=== PATIENT | female | born 1990 | race Caucasian/White ===

== ENCOUNTER 2016-09-01 17:36 | Day surgery (SDC) | payer BC ==
[~2016-09-01] VITALS: Ht 165.1 cm; Wt 67.3 kg
[2016-09-01 18:40] LABS: BASO % 0.1 % (0.0-2.0); GRAN % 86.8 % (42.2-75.2); HEMATOCRIT 37.9 % (37.0-47.0); HEMOGLOBIN 12.9 g/dl (12.5-16.0); LYMPH # 1.1 (1.2-3.4); LYMPH % 8.4 % (20.0-51.0); MEAN CELL VOLUME 87 fl (80.0-100.0); MEAN CORPUSCULAR HEMOGLOBIN 30 pg (27.0-31.0); MEAN CORPUSCULAR HGB CONC 34 g/dl (33.0-37.0); MEAN PLATELET VOLUME 10.5 fl (7.4-10.4); MONO # 0.5 (0.1-0.6); MONO % 4.2 % (1.7-9.3); PLATELET COUNT 261 K/mm3 (130-400); RED BLOOD COUNT 4.34 M/mm3 (4.10-5.30); REDCELL DISTRIBUTION WIDTH-CV 11.9 % (11.5-14.5); WHITE BLOOD COUNT 12.7 K/mm3 (4.8-10.8)
[2016-09-01 18:48] LABS: PH 5 (5-8); SQUAMOUS EPITHELIAL 0-2 /hpf; URINE APPEARANCE Clear; URINE BACTERIA None Seen /hpf; URINE BILIRUBIN Negative (NEGATIVE); URINE BLOOD Negative (NEGATIVE); URINE COLOR Yellow; URINE GLUCOSE Negative (NEGATIVE); URINE KETONE 2+ (NEGATIVE); URINE RBC 0-2 /hpf; URINE UROBILINOGEN Negative (NEGATIVE)
[2016-09-01 18:48] LABS: ANION GAP 16 mmol/L (7-16); BLOOD UREA NITROGEN 15 mg/dL (7-17); CALCIUM 9.9 mg/dL (8.4-10.2); CARBON DIOXIDE 22 mmol/L (22-30); CHLORIDE 93 mmol/L (98-107); CREATININE, serum 0.63 mg/dL (0.52-1.25); GLUCOSE 96 mg/dL (74-106); POTASSIUM 4.6 mmol/L (3.4-5.0); SODIUM 132 mmol/L (137-145)
[2016-09-01 18:51] LABS: C-REACTIVE PROTEIN < 0.5 mg/dL (0.0-0.9)
[2016-09-01 22:15] VITALS: BP 114/65; PULSE 59
[2016-09-01 22:30] VITALS: BP 123/82; PULSE 75
[2016-09-01 22:45] VITALS: BP 126/83; PULSE 70
[2016-09-01 23:00] VITALS: BP 125/81; PULSE 61
[2016-09-01 23:15] VITALS: BP 130/88; PULSE 84
[2016-09-01 23:45] VITALS: BP 125/855; PULSE 75
[2016-09-02 00:15] VITALS: BP 119/73; PULSE 107
[2016-09-02 01:15] VITALS: BP 115/60; PULSE 82
[2016-09-02 05:30] VITALS: BP 116/82; PULSE 87; TEMP 98.1
[2016-09-02 07:10] VITALS: BP 111/69; PULSE 58; TEMP 98.2
[2016-09-02] MEDS ORDERED: IBU800 M1 PO (08:26)
[2016-09-02] MEDS ORDERED: PERCOCET 325 MG1 TA2 PO (08:27)
== END 2016-09-02 08:45 ==
LOC: COL.ER 17:36 → SDCO 19:55 → OB 19:56 → SDCO 09-02 08:45
PROVIDERS: Emergency Medicine
DX: N83.53 Torsion of ovary, ovarian pedicle and fallopian tube (principal); R10.2 Pelvic and perineal pain
CPT/HCPCS: OP; A4315; J0330; J0690; J1100; J1885; J2175; J2250; J2274; J2704; J2710; J2765; J3010; J7030

== ENCOUNTER → 2016-09-01 | Outpatient (CLI) | payer BC ==
[~2016-09-01] MED LIST: IBU800 M1 PO; PERCOCET 325 MG1 TA2 PO
== END ==
LOC: COL.RAD 12:46
DX: D39.12 Neoplasm of uncertain behavior of left ovary (principal); R10.32 Left lower quadrant pain; R11.10 Vomiting, unspecified
CPT/HCPCS: Q9967